=== PATIENT | female | born 1955 | race Caucasian/White ===

== ENCOUNTER 2021-11-22 11:11 | Inpatient (IN) | payer OTHER ==
[~2021-11-22] VITALS: Ht 172.7 cm; Wt 74.8 kg
[2021-11-22 14:03] LABS: HEMOGLOBIN 14.2 gm/dl (12.3-15.3); RED BLOOD COUNT 4.49 M/UL (4.00-5.10); WHITE BLOOD COUNT 14.9 K/UL (4.5-11.0)
[2021-11-22] MEDS ORDERED: AMLODIPINE BES2.5 MG PO (14:52)
[2021-11-22] MEDS ORDERED: HYDROCODON-ACE1 EAC4 PO (14:53)
[2021-11-22] MEDS ORDERED: METOPROLOL TART25 MG PO (14:53)
[2021-11-22] MEDS ORDERED: OMEPRAZOLE40 MG PO (14:54)
[2021-11-22] MEDS ORDERED: BRILINTA90 MG PO (14:54)
[2021-11-22] MEDS ORDERED: RANOLAZINE ER500 MG PO (14:55)
[2021-11-22] MEDS ORDERED: ATORVASTATIN CA80 MG PO (14:56)
[2021-11-22] MEDS ORDERED: ESTRADIOL1 MG PO (14:56)
[2021-11-22] MEDS ORDERED: ASPIRIN EC81 MG PO (14:56)
[2021-11-23 07:09] LABS: HEMOGLOBIN 12.3 gm/dl (12.3-15.3); RED BLOOD COUNT 4.09 M/UL (4.00-5.10)
[2021-11-23 07:15] LABS: WHITE BLOOD COUNT 8.8 K/UL (4.5-11.0)
[2021-11-23 07:53] LABS: BUN/CREATININE RATIO 11 (0-10)
[2021-11-24 02:58] LABS: HEMOGLOBIN 12.3 gm/dl (12.3-15.3); RED BLOOD COUNT 3.93 M/UL (4.00-5.10); WHITE BLOOD COUNT 10.9 K/UL (4.5-11.0)
[2021-11-24 03:26] LABS: BUN/CREATININE RATIO 16 (0-10)
[2021-11-24] MEDS ORDERED: ENOXAPARIN30 MG/0.3 SC (16:24)
[2021-11-24] MEDS ORDERED: HYDROCODON-ACE1 EAC5 PO (16:24)
--- NOTE | 2021-11-24 19:09 | NUR ---
PT CONDITION CHANGED AT 1700, DR. FORMAN NOTIFIED AND PT ENCOURAGED TO STAY IF SHE IS NOT FEELING ANY BETTER. AT 1860 PT DECIDED TO STAY OVERNIGHT AT THE HOSPITAL. DR. FORMAN NOTIFIED OF PT DECIDING TO STAY AND HAS CANCELED HER DISCHARGED ORDERS. PT WILL BE STAYING OVERNIGHT TO HELP CONTROL PAIN AND NAUSEA. WILL CONTINUE TO MONITOR.
[2021-11-25] MEDS ORDERED: ZOFRAN 4 MG TAB4 MG PO (09:13)
[2021-11-26] MEDS ORDERED: LOVENOX30 MG/0.3 SQ (12:55)
[2021-11-26] MEDS ORDERED: ZOFRAN 4 MG TAB4 MG PO (12:57)
[2021-11-26] MEDS ORDERED: TYLENOL EXTRA500 MG PO (12:59)
[2021-11-26] MEDS ORDERED: CLARITIN-D 121 EACH PO (13:00)
== END 2021-11-25 09:53 | disposition home or self-care (01) | DRG 494 ==
LOC: ER1 11:11 → CDU 14:02 → M/S 14:02
PROVIDERS: Orthopaedic Surgery; Physician Assistant; Physician Assistant Medical; ADMIT Internal Medicine
PROC: 0QSG35Z Reposition Right Tibia with External Fixation Device, Percutaneous Approach (ICD-10-PCS; principal; 2021-11-23 12:00)
DX: S82.851A Displaced trimalleolar fracture of right lower leg, initial encounter for closed fracture (principal); W01.0XXA Fall on same level from slipping, tripping and stumbling without subsequent striking against object, initial encounter; I10 Essential (primary) hypertension; E78.5 Hyperlipidemia, unspecified; J44.9 Chronic obstructive pulmonary disease, unspecified; K21.9 Gastro-esophageal reflux disease without esophagitis; F17.210 Nicotine dependence, cigarettes, uncomplicated; I25.10 Atherosclerotic heart disease of native coronary artery without angina pectoris; E87.6 Hypokalemia; E83.42 Hypomagnesemia; D72.829 Elevated white blood cell count, unspecified; K58.9 Irritable bowel syndrome, unspecified; Z79.899 Other long term (current) drug therapy; I25.2 Old myocardial infarction; Z95.1 Presence of aortocoronary bypass graft; Z90.710 Acquired absence of both cervix and uterus; Z90.49 Acquired absence of other specified parts of digestive tract; Z79.82 Long term (current) use of aspirin; Z82.49 Family history of ischemic heart disease and other diseases of the circulatory system; Z83.3 Family history of diabetes mellitus; Z80.3 Family history of malignant neoplasm of breast; Z90.89 Acquired absence of other organs
CPT/HCPCS: 36415; 71045; 73502; 73552; 73590; 73600; 73610; 76000; 80048; 80053; 82550; 82553; 83735; 84132; 84484; 85025; 93005; 96374; 96375; 96376; 99285; C1713; G0378; J0690; J0780; J1170; J1650; J1885; J2001; J2270; J2405; J2704; J3010; J3475